=== PATIENT | male | born 1995 | race Two or more races ===

== ENCOUNTER 2016-06-15 19:29 | Emergency (ER) | payer MEDICAID ==
[~2016-06-15] VITALS: Ht 172.7 cm; Wt 61.7 kg
[~2016-06-15 19:29] MED LIST: NKM; ZOFRAN ODT4 MG ORAL
[2016-06-15 19:55] VITALS: BP 117/75
[2016-06-15 21:20] LABS: BASOPHILS % (AUTO) 1.5 % (0.0-2.0); EOSINOPHILS % (AUTO) 0.9 % (0.0-3.0); LYMPHOCYTES % (AUTO) 30.3 % (20.0-45.0); MEAN CORPUSCULAR HEMOGLOBIN 32.1 PG (27.0-31.0); MEAN CORPUSCULAR HGB CONC 32.4 G/DL (32.0-36.0); MEAN CORPUSCULAR VOLUME 99 FL (80-99); MEAN PLATELET VOLUME 7.4 FL (6.5-10.1); MONOCYTES % (AUTO) 7.9 % (1.0-10.0); NEUTROPHILS % (AUTO) 59.4 % (45.0-75.0); PLATELET COUNT 199 K/UL (150-450); RED BLOOD COUNT 4.45 M/UL (4.70-6.10); RED CELL DISTRIBUTION WIDTH 12.1 % (11.6-14.8); WHITE BLOOD COUNT 10.5 K/UL (4.8-10.8)
[2016-06-15 21:42] LABS: ALANINE AMINOTRANSFERASE 8 U/L (3-41); ALBUMIN/GLOBULIN RATIO 1.8 (1.0-2.7); ANION GAP 15 (5-15); ASPARTATE AMINO TRANSFERASE 20 U/L (5-40); CALCIUM 9.2 mg/dL (8.6-10.2); CARBON DIOXIDE 26 mEQ/L (20-30); CHLORIDE 101 mEQ/L (98-107); CREATININE 0.9 mg/dL (0.7-1.2); GLOMERULAR FILTRATION RATE > 60 mL/min (>60); HEMOLYSIS 25; POTASSIUM 3.8 mEQ/L (3.4-4.9); SODIUM 142 mEQ/L (135-145); TOTAL PROTEIN 6.6 g/dL (6.6-8.7)
[2016-06-15] MEDS ORDERED: MECLIZINE HCL25 MG ORAL (21:48)
--- NOTE | 2016-06-15 21:54 | Emergency Room Report ---
History of Present Illness General Chief Complaint: Generalized Weakness Source: Patient Present Illness HPI 21YOM without known PMHx walk-in with "feeling dehydrated" and dizzy. Dizziness worse with movement of head, change of position. Denies assoc headache, nausea./vomiting, fever/chills, neck pain/stiffness. States has " been here before for IV hydration." Allergies: Coded Allergies: No Known Allergies (Unverified , 10/14/15) Patient History Past Medical History: none Past Surgical History: none Pertinent Family History: none Social History: Denies: alcohol use, drug use, smoking Immunizations: UTD Reviewed Nursing Documentation: PMH: Agreed, PSxH: Agreed Nursing Documentation-PMH Past Medical History: No Stated History Review of Systems All Other Systems: negative except mentioned in HPI Physical Exam Vital Signs Date Time Temp Pulse Resp B/P Pulse Ox O2 Delivery O2 Flow Rate FiO2 06/15/16 19:41 98.1 93 15 117/75 100 Room Air Sp02 EP Interpretation: reviewed, normal General Appearance: normal inspection, well appearing, no apparent distress, alert, GCS 15, non-toxic Head: normocephalic Eyes: bilateral eye EOMI, bilateral eye PERRL ENT: normal ENT inspection, hearing grossly normal, normal pharynx, no angioedema, normal voice, other - +corinna hallpike Neck: normal inspection, full range of motion, supple, no meningismus, no bony tend Respiratory: normal inspection, lungs clear, normal breath sounds, no respiratory distress, no retraction, no wheezing Cardiovascular #1: regular rate, rhythm, no edema Gastrointestinal: normal inspection, normal bowel sounds, non tender, soft, no guarding, no hernia Genitourinary: no CVA tenderness Musculoskeletal: normal inspection, back normal, normal range of motion, Ernestina' s Sign negative Neurologic: normal inspection, alert, oriented x3, responsive, circular sawyer helper III-XII nml as tested, motor strength/tone normal, speech normal Psychiatric: normal inspection, judgement/insight normal, mood/affect normal Skin: normal inspection, normal color, no rash Lymphatic: normal inspection Medical Decision Making Diagnostic Impression: Primary Impression: Episode of generalized weakness Additional Impression: Dizziness ER Course Generalized weakness, vertigo + Corinna hallpike, ?BPPV Labs: No leuks or metabolic abnormalities. H&H stable Feels better after IV hydration Rx meclizine, advised ENT referral from PMD DC home Last Vital Signs Date Time Temp Pulse Resp B/P Pulse Ox O2 Delivery O2 Flow Rate FiO2 06/15/16 19:45 98.1 93 15 117/75 100 Room Air Status: improved Disposition: HOME, SELF-CARE Condition: Improved Scripts Meclizine Hcl* (MECLIZINE*) 25 Mg Tablet 25 MG ORAL BID for 7 Days, #14 TAB Prov: YAONA OLGUIN M.D. 06/15/16 Patient Instructions: Dehydration, Adult, Bcia-[id number]-Aegy, Vertigo, [id number], Weakness, [id number] Additional Instructions: - Drink enough water! - Take meclizine up to 2x a day for vertigo and ask your primary doctor to refer to you a ENT doctor to evaluate you for vertigo YOANA OLGUIN M.D. Jun 15, 2016 21:54
[2016-06-15 21:58] VITALS: BP 120/83
== END 2016-06-15 21:58 | disposition home or self-care (01) ==
LOC: EMR 20:05
DX: R42 Dizziness and giddiness (principal); R53.1 Weakness
CPT/HCPCS: 36415; 80053; 85025; 96374